=== PATIENT | female | born 1965 | race African-American/Black ===

== ENCOUNTER 2016-08-10 10:59 | Emergency (ER) | payer BC ==
[~2016-08-10 10:59] MED LIST: ADVIL PO; BEN GAY1.25 OZ TOP; PAX20 PO; PRIN5 PO; SYN.15 PO; VIVELLE SY0.1 MG/24 TOP; VIVELLE-DOT0.1 MG TOP
== END 2016-08-10 11:41 | disposition home or self-care (01) ==
LOC: ER 10:59
DX: E03.9 Hypothyroidism, unspecified (principal); I10 Essential (primary) hypertension; F32.9 Major depressive disorder, single episode, unspecified; Z79.899 Other long term (current) drug therapy
CPT/HCPCS: 99284